=== PATIENT | male | born 1925 | race Caucasian/White ===

== ENCOUNTER 2016-06-06 13:25 | Inpatient (IN) ==
--- NOTE | 2016-06-06 13:55 | PROVIDER DOCUMENTATION ---
HPI-Abdominal Pain/GI Problem - General Chief Complaint: Foreign Body/Throat Stated Complaint: CONGESTION Time Seen by Provider: 06/06/16 13:49 Source: patient Allergies/Adverse Reactions: Patient Allergies Allergy/AdvReac Type Severity Reaction Status Date / Time No Known Allergies Allergy Verified 06/06/16 13:41 Home Medications: Levothyroxine [Synthroid] 75 microgm PO EVERY OTHER DAY 09/09/15 Losartan/Hydrochlorothiazide [Hyzaar 100-25 Tablet] 1 each PO DAILY 09/09/15 Pioglitazone HCl [Actos] 30 mg PO DAILY 09/09/15 Simvastatin 40 mg PO QHS 09/09/15 Tramadol HCl [Ultram] 100 mg PO TID PRN 09/09/15 Tamsulosin [Flomax] 0.4 mg PO QHS 12/04/15 - History of Present Illness-ABD Nature of Presenting Problems: pt is a 89 y/o M that presents with feeling congested and sensation of FB in throat/esophagus that began this am after eating grits. he was unable to swallow his V8 or water since. No difficulty breathing sense. pt did eat large blended meal last night. Abdominal Pain Onset Location: reports: epigastric, other (esophagus) Pain Radiation: reports: no radiation Quality of Pain: reports: pressure Severity in ED: reports: mild Onset/Duration: reports: abrupt, this morning Timing: reports: still present, constant Activities at Onset: denies: eating Modifying Factors: improves with: other (swallowing) Associated Symptoms: reports: nausea, vomiting. denies: chest pain, constipation, diaphoresis, diarrhea, fever/chills, genitourinary problems Similar Symptoms Previously?: No Recently seen or treated by another doctor?: No Review of Systems - Adult - REVIEW OF SYSTEMS - ADULT Constitutional: denies: chills, fever Eyes: reports: no symptoms reported Ears, Nose, Mouth & Throat: reports: other (sensation of fb in throat). denies : ear pain, sinus problem, throat pain, throat swelling Cardiovascular: denies: chest pain, palpitations, syncope Respiratory: denies: cough, shortness of breath, wheezing Gastrointestinal: reports: abdominal pain, difficulty swallowing, nausea, vomiting Genitourinary: reports: no symptoms reported Musculoskeletal: reports: no symptoms reported Integumentary: reports: no symptoms reported Neurological: reports: no symptoms reported Psychiatric: reports: no symptoms reported Endocrine: reports: no symptoms reported Hematologic/Lymphatic: reports: no symptoms reported Allergic/Immunologic: reports: no symptoms reported All Other Systems: Reviewed and Negative Past History - Adult - PAST MEDICAL HISTORY-ADULT Review of Records: reports: Old Records Reviewed, Nursing Assessment Review, Medications Reviewed Cardiovascular: reports: HTN, hyperlipidemia Gastrointestinal: reports: other (esophageal strictures) Endocrine/Immune: reports: Diabetes - PRIOR SURGERIES/PROCEDURES Surgical/Procedure History: reports: reviewed, not pertinent - PRIOR HOSPITALIZATIONS Prior Hospitalizations: reports: none - IMMUNIZATION STATUS Childhood Immunizations: See Nurse Assessment Flu Vaccine: See Nurse Assessment - FAMILY HISTORY Family History: reviewed, not pertinent - SOCIAL HISTORY Smoking: quit greater than 1 year, cigarettes Living Situation: family Physical Exam-General - PHYSICAL EXAM-ADULT Initial Vital Signs Reviewed: Yes - CONSTITUTIONAL General Appearance: alert, no apparent distress - EYES Eyes: PERRL/EOMI, pink conjunctivae - HEAD, EARS, NOSE, MOUTH & THROAT HENMT: normocephalic/atraumatic, moist mucous membranes, normal ENT inspection, pharynx normal - NECK Neck: non-tender, full range of motion, normal inspection - RESPIRATORY Respiratory: lungs clear, normal breath sounds, no respiratory distress, no accessory muscle use, other (tender to chest wall) - CARDIOVASCULAR Cardiovascular: regular rate, rhythm, no edema, no murmur - GASTROINTESTINAL (ABDOMEN) Abdominal Exam: normal bowel sounds, non tender, no organomegaly, no pulsatile mass, distended - MUSCULOSKELETAL Extremity: normal range of motion, normal inspection, normal capillary refill, pedal edema (3 plus pitting) - SKIN Integumentary: normal color, normal turgor, warm/dry - NEUROLOGIC Neurologic: grossly normal, no motor/sensory deficits - PSYCHIATRIC Psych/Mental Status: normal mood/affect, normal thought content, normal thought process, oriented x 3 Progress - PLAN OF CARE/RESULTS Progress/Plan/Lab Results: plan of care-cxr and meds 1540-GI has been paged 2301- at bedside, patient has haven't bowel movement in a week. has been on bland diet for awhile Vital Signs Temp Pulse Resp BP Pulse Ox 06/06/16 13:41 99.7 F H 98 H 18 122/69 99 No Known Allergies Allergy (Verified 06/06/16 13:41) Levothyroxine [Synthroid] 75 microgm PO EVERY OTHER DAY 09/09/15 Losartan/Hydrochlorothiazide [Hyzaar 100-25 Tablet] 1 each PO DAILY 09/09/15 Pantoprazole [Protonix] 40 mg PO DAILY #30 tablet 09/09/15 Pioglitazone HCl [Actos] 30 mg PO DAILY 09/09/15 Simvastatin 40 mg PO QHS 09/09/15 Tramadol HCl [Ultram] 100 mg PO TID PRN 09/09/15 Tamsulosin [Flomax] 0.4 mg PO QHS 12/04/15 Acetaminophen [Tylenol] 650 mg PO Q6H PRN PRN #0 tablet 12/06/15 Hydrochlorothiazide 25 mg PO DAILY #0 tablet 12/06/15 Levofloxacin [Levaquin] 500 mg PO Q48H #7 tablet 12/06/15 Losartan [Cozaar] 100 mg PO DAILY #0 tablet 12/06/15 Menthol/Zinc Oxide Ointment [Calmoseptine Ointment] 1 gm TOP PRN PRN #0 tube 05/22 Metronidazole [Flagyl] 500 mg PO TID #21 tablet 12/06/15 Amoxicillin 875 mg PO BID #20 tablet 04/16/16 Guaifenesin/Codeine [Robitussin-AC] 10 ml PO Q4H PRN PRN #4 oz 04/16/16 Dietary Diet NPO Start SunJun 06 1545 Laboratory 06/06/16 15:59 WBC 8.56 RBC 3.84 L Hgb 11.6 L Hct 35.7 L MCV 93.0 MCH 30.2 MCHC 32.5 L RDW Std Deviation 14.5 Plt Count 322 MPV 9.7 Immature Gran % (Auto) 0.1 Neut % (Auto) 64.2 Lymph % (Auto) 22.4 [place] % (Auto) 11.0 H Eos % (Auto) 1.8 Baso % (Auto) 0.5 Immature Gran # (Auto) 0.01 Neut # (Auto) 5.50 Lymph # (Auto) 1.92 [place] # (Auto) 0.94 H Eos # (Auto) 0.15 Baso # (Auto) 0.04 Orders Category Date Time Status Nursing [[facility] [place], [place]. NRSG Communication Order] DIRECTED Care 06/06/16 13:59 Active Saline Loc DIRECTED Care 06/06/16 15:45 Active NPO Diet 06/06/16 15:45 Active ABDOMEN FLAT/UPRIGHT [RAD] Stat Exams 06/06/16 15:49 Taken CHEST-2 VIEWS [RAD] Stat Exams 06/06/16 13:32 Completed AMYLASE [CHEM] Stat Lab 06/06/16 15:59 Received CBC WITH ELECTRONIC DIFF [HEME] Stat Lab 06/06/16 15:59 Completed COMPREHENSIVE METABOLIC PANEL [CHEM] Stat Lab 06/06/16 15:59 Received LIPASE [CHEM] Stat Lab 06/06/16 15:[address] W/POSS RFLX CULT [URINALYSIS] Stat Lab 06/06/16 15:45 Uncollected 0.9% Sodium Chloride Inj [Ns] 1,000 ml Med 06/06/16 16:00 Active IV 100 mls/hr Glucagon Med 06/06/16 13:58 Discontinued 1 mg IV NOW ONE Meperidine [Demerol] Med 06/06/16 13:58 Discontinued 12.5 mg IV NOW ONE Ondansetron [Zofran] Med 06/06/16 15:48 Discontinued 4 mg IV NOW ONE Pantoprazole [Protonix] Med 06/06/16 15:48 Discontinued 40 mg IV NOW ONE Promethazine [Phenergan] Med 06/06/16 13:58 Discontinued 12.5 mg IV NOW ONE Sodium Chloride 0.9% Med 06/06/16 13:58 Discontinued 10 ml INJ NOW ONE Sodium Chloride 0.9% Med 06/06/16 15:48 Discontinued 10 ml INJ NOW ONE EKG [EKG] Stat Ther 06/06/16 15:48 Ordered - REASSESSMENT Reassessment #1 Time Reassessed: 15:00 Status: other Reassessment Comment: unable to hold water down after medications were given 30 mins before - EKG 1 Time of EKG reading by physician:: 15:56 EKG Read and Signed by:: Owen Villalobos EKG Interpretation (*Must complete 3 of following elements*): Normal Rate: 93 Rhythm: NSR [place]: normal QRS: normal [place] Interval: normal ST Wave: normal - XRAY 1 XRAY Study: Chest Impression: Abnormal XRAY Interpretation: no pneumonia , constipation per radiologist - CONSULTS/PCP/HOSPITALIST Notification #1 *Consult/PCP/Hospitalist*: Dr. Henry Time Discussed: 15:43 Reason/Comments: admit to hospitalist at [facility] and he will consult Consult Disposition: other #2 Consult: (hospitalist on for [facility]) Time Discussed: 16:50 Reason/Comments: admit to [facility], [place], operated by [facility] for constipation, food bolus Consult Disposition: Admit Departure - Departure Time of Disposition Order: 16:54 DIAGNOSIS: FB esophagus, Constipation, Esophageal pain Disposition: ADMITTED INPATIENT 09 Certified Medical Emergency: Emergent Condition: Stable Attestation - Scribe Verification/Attestation Scribe:: Gage Mcmillan Acting as Scribe for:: Owen Villalobos Scribe documention review:: This chart was documented by a scribe and accurately reflects the service the provider performed and the decisions made by the provider. Physician Attestation - Physician Attestation I, the provider, attest to the following statement:: Owen Villalobos Physician documentation Attestation:: This documentation recorded by the scribe accurately reflects the service I personally performed and the decisions made by me.
[2016-06-06] MEDS ORDERED: PHENERGAN IV ONE (13:58)
[2016-06-06] MEDS ORDERED: DEMEROL IV ONE (13:58)
[2016-06-06] MEDS ORDERED: SODIUM CHLORIDE 0.9% INJ ONE ×2 (13:58→15:48)
[2016-06-06] MEDS ORDERED: GLUCAGON IV ONE (13:58)
--- NOTE | 2016-06-06 14:35 | Diag Imaging Result Document ---
PROCEDURE NAME: CHEST-2 VIEWS - 06/06/2016 FRONTAL AND LATERAL CHEST, TWO VIEWS: COMPARISON: 04/16/2016. FINDINGS: Poor inspiratory effort. The heart is not enlarged. The vessels are not distended. No pleural effusions. No consolidation. There is stool throughout the colon in the upper abdomen. IMPRESSION: 1. No pneumonia. 2. Constipation.
[2016-06-06] MEDS ORDERED: PROTONIX IV ONE (15:48)
[2016-06-06] MEDS ORDERED: ZOFRAN IV ONE (15:48)
[2016-06-06 16:07] LABS: MANUAL DIFF NEEDED? NO
[2016-06-06 16:09] LABS: BASO% 0.5 % (0.0-0.8); EOS# 0.15 X1000 (0.0-0.7); EOS% 1.8 % (0.0-10.0); HEMATOCRIT 35.7 % (42.0-52.0); HEMOGLOBIN 11.6 g/dL (14.0-18.0); IMM GRAN# 0.01 X1000 (0.0-0.04); IMM GRAN% 0.1 % (0.0-0.5); LYMPH# 1.92 X1000 (1.2-3.4); LYMPH% 22.4 % (20.5-51.1); MCH 30.2 PG (27-31); MCHC 32.5 g/dL (33-37); MONO# 0.94 X1000 (0.11-0.59); MPV 9.7 FL (7.4-10.4); NEUT% 64.2 % (42.2-75.2); PLT 322 X1000 (130-400); RBC 3.84 XMIL (4.7-6.1)
[2016-06-06] MEDS: NS 1,000 ML IV SCH (16:46)
[2016-06-06] MEDS ORDERED: ZOFRAN IV PRN (16:54)
--- NOTE | 2016-06-06 17:09 | Diag Imaging Result Document ---
PROCEDURE NAME: ABDOMEN FLAT/UPRIGHT - 06/06/2016 TWO VIEW ABDOMEN: INDICATION: Vomiting. FINDINGS: There is moderate retained fecal material throughout the colon, consistent with constipation. There is no evidence for obstruction or free air. There are advanced degenerative changes, lumbar spine. Calcifications overlying the left renal shadow are unchanged. IMPRESSION: Moderate constipation.
[2016-06-06 17:23] LABS: BUN 27 mg/dL (8-22); TCO2 25 mmol/L (25-35)
[2016-06-06 17:25] LABS: CALCIUM 8.8 mg/dL (8.8-10.2); TOTAL PROTEIN 6.6 g/dL (6.3-8.3)
[2016-06-06 17:26] LABS: AMYLASE 73 U/L (20-200); GOT 18 U/L (10-34); GPT 9 U/L (10-44); LIPASE 35 U/L (13-60)
[2016-06-06] MEDS ORDERED: DILAUDID ONE (17:30)
[2016-06-06] MEDS ORDERED: DILAUDID IV ONE (17:37)
--- NOTE | 2016-06-06 18:45 | EKG Report ---
Test Performed on : 06/06/2016 3:56:48 PM Test Reason : CP Blood Pressure : / mmHG Vent. Rate : 093 BPM Atrial Rate : 093 BPM P-R Int : 154 ms QRS Dur : 088 ms QT Int : 354 ms P-R-T Axes : 005 003 017 degrees QTc Int : 440 ms Normal sinus rhythm. Normal ECG When compared with ECG of 16-APR-2016 10:39, No significant change was found Unconfirmed Result
[2016-06-06 19:14] LABS: ALBUMIN 3.5 g/dL (3.5-5.0); ALKALINE PHOSPHATASE 73 U/L (32-122); CHLORIDE 97 mmol/L (98-107); POTASSIUM 4.4 mmol/L (3.5-5.1); SODIUM 132 mmol/L (136-145)
[2016-06-06 19:33] LABS: AGAP 10
[2016-06-06 19:34] LABS: COSMO 273
[2016-06-06] MEDS ORDERED: DEMEROL ONE (20:10)
[2016-06-06] MEDS: DEMEROL IV PRN (20:13)
[2016-06-06] MEDS ORDERED: DUONEB (A & A) ONE (21:29)
[2016-06-06] MEDS: DUONEB (A & A) INH SCH (21:40)
[2016-06-07] MEDS: DEMEROL IV PRN (00:14)
[2016-06-07] MEDS: NS 1,000 ML IV SCH ×3 (00:15→12:33)
[2016-06-07 06:14] LABS: MANUAL DIFF NEEDED? NO
[2016-06-07] MEDS ORDERED: NS 1,000 ML IV SCH ×2 (06:17→06:45)
[2016-06-07] MEDS: DUONEB (A & A) INH SCH ×7 (06:23→23:33)
[2016-06-07 06:26] LABS: INR 1.05; PROTIME 11.1 Seconds (9.2-11.7); PTT 28.9 Seconds (22.0-36.0)
[2016-06-07 06:32] LABS: HEMOGLOBIN A1C 5.8 % (4.8-6.0)
[2016-06-07 06:36] LABS: BASO% 0.2 % (0.0-0.8); EOS# 0.11 X1000 (0.0-0.7); EOS% 1.1 % (0.0-10.0); HEMATOCRIT 35.8 % (42.0-52.0); HEMOGLOBIN 11.6 g/dL (14.0-18.0); LYMPH# 1.66 X1000 (1.2-3.4); LYMPH% 16.8 % (20.5-51.1); MCH 30.3 PG (27-31); MCHC 32.4 g/dL (33-37); MCV 93.5 FL (81-99); MONO# 0.93 X1000 (0.11-0.59); MONO% 9.4 % (1.7-9.3); NEUT% 72.5 % (42.2-75.2); PLT 331 X1000 (130-400); RBC 3.83 XMIL (4.7-6.1)
[2016-06-07 06:51] LABS: CALCIUM 8.7 mg/dL (8.8-10.2); POTASSIUM 4.5 mmol/L (3.5-5.1)
--- NOTE | 2016-06-07 08:49 | HISTORY AND PHYSICAL ---
CHIEF COMPLAINT: Difficulty swallowing, possible foreign body in throat/esophagus. HISTORY OF PRESENT ILLNESS: Mr. Rqoue is an 89-year-old male who presented to the ER at [facility] yesterday afternoon at approximately 1:45 p.m. on June 06. The patient reports that since eating some grits earlier that morning that he has been unable to swallow anything since. The patient did report that he tried drinking a V8 and water, though he was unable to hold this down and did throw this back up, as well. Outside of his grits this morning, the patient did report eating a large meal the night before. The patient did report some discomfort and a congested feeling in his chest at [facility], though he states this has since subsided. He denies any difficulty breathing or shortness of breath. He denies any headache, dizziness, chest pain, abdominal pain, diarrhea, dysuria, or urinary frequency. He denies any pain, numbness or tingling in his extremities. The patient does report that he has had some nausea and vomiting secondary to his difficulty swallowing and being unable to hold down any fluids that he drinks. He denies any bloody or coffee-ground emesis. He denies any bloody or black tarry stools. The patient does deny a previous history of having any difficulty swallowing. He denies any previous history of esophageal strictures. In the ER at [facility], the patient was given glucagon as well as Demerol, though attempts were unsuccessful. Dr. Gonzalez was consulted, and he is aware of the patient and plans to perform and EGD today to further evaluate the patient's dysphagia. The patient was transferred to [facility] for admission. REVIEW OF SYSTEMS: A 14-point review of systems was conducted with the patient and all were negative except for pertinent positives mentioned in the above HPI. PAST MEDICAL HISTORY: 1. Hypertension. 2. Hyperlipidemia. 3. Diabetes mellitus type 2. 4. COPD. 5. Thyroid disease. 6. History of colitis. 7. History of acute renal failure. PAST SURGICAL HISTORY: Right knee surgery. SOCIAL HISTORY: The patient currently lives at home. He does have a previous history of smoking several years ago. The patient reports that he has since quit, though when he did smoke only smoked 1 pack per day for approximately 8 years. He denies any previous alcohol or illicit drug use. FAMILY HISTORY: Positive for lung cancer. ALLERGIES: The patient has no known drug allergies. HOME MEDICATIONS: At this time, we are awaiting the patient's home medication list to be confirmed and updated as well as possibly verified with his pharmacy. The patient's home medication list was previously confirmed at [facility], though upon speaking with the patient there were possibly 3 antibiotic medications listed on his list that he states he no longer takes. We will await for this to be confirmed and we will reconcile his meds once this has been updated. DIAGNOSTIC DATA/LABORATORY RESULTS: White blood cell count 8.5, red blood cell count 3.8, hemoglobin 11.6, hematocrit 35.7, platelet count 322. PT 11.1, INR 1.05, PTT 28.9. Sodium 132, potassium 4.4, chloride 97, bicarb 25, BUN 27, creatinine 1.4, glucose 151, calcium 8.8. Liver function tests were within normal limits. Amylase 73, lipase 35. ProBNP 509. TSH 2.79. Hemoglobin A1c 5.8. EKG: EKG performed at [facility] showed normal sinus rhythm at a rate of 93. IMAGING: Chest x-ray performed at [facility] showed no pneumonia with some constipation present. Abdomen x-ray showed moderate constipation, as well. PHYSICAL EXAMINATION: VITAL SIGNS: Temperature 97.4, heart rate 97, respirations 14, blood pressure 134/62, oxygen saturation is 95% on room air. GENERAL: Mr. Roque is a pleasant, elderly 89-year-old male who is resting in the inpatient bed who is in no acute distress. He was awake and alert upon examination and was able to answers all questions appropriately. HEENT: Head is atraumatic, normocephalic. Pupils are equal, round and reactive to light, were 3 mm bilaterally and brisk. Subconjunctivae were pink. Oral mucosa was moist. Oropharynx was clear. NECK: Supple, trachea midline, no JVD noted upon examination. No carotid bruits noted upon auscultation. CARDIOVASCULAR: The patient has normal S1, S2. No murmurs, gallops, or rubs appreciated with a regular rate and rhythm. PULMONARY: The patient has symmetrical chest expansion bilaterally. Lung sounds were clear in upper lung chapin though there were crackles noted in bilateral lung chapin. ABDOMEN: Soft nondistended, nontender. Bowel sounds were present in all 4 quadrants. EXTREMITIES: No cyanosis or clubbing noted. The patient does have 2+ pitting edema noted in bilateral lower extremities from mid calf down. Pedal pulses are 3+ bilaterally. Pulse, motor, and sensory are intact in all extremities. INTEGUMENTARY: The patient's skin is pink, warm, dry, and intact. No lesions or sores noted. NEUROLOGICAL: The patient is alert and oriented to person, place, time, and situation. Cranial nerves 2-12 are grossly intact. ASSESSMENT AND PLAN: 1. Dysphagia with possible esophageal foreign body. For this, the patient will be kept n.p.o. Dr. Gonzalez has been consulted, and he is aware of the patient and plans to take him for an EGD this morning. We will await his evaluation and further recommendations for this. At this time, the patient is in no distress. He is not having any respiratory difficulty. We will continue to monitor his condition closely. 2. Mild fluid volume depletion. For this, we will give the patient normal saline at 60 mL/h. This was reduced from 100 mL/h. The patient denies having a history of congestive heart failure though did have some crackles in bilateral lung bases, though he does not have any obvious JVD. He also does have lower extremity edema. We will continue to monitor his fluid status closely. 3. Hypertension. At this time, the patient is n.p.o. His blood pressure is within normal limits, so we are holding all oral medications as well as we are awaiting for the patient's home medication list to be updated. Once this is, we will continue his really prescribed antihypertensive medications. 4. Hyperlipidemia. We will continue his regular home medication for this once his med list is updated. 5. Hypothyroidism. The patient, according to his previous medication list, takes Synthroid 75 mcg p.o. every other day. We will continue this. The patient's TSH was 2.79. 6. Diabetes mellitus type 2. The patient's BUN and creatinine were elevated from possible mild fluid volume depletion. We have ordered normal saline at 75 an heart rate for gentle fluid resuscitation to help with this, though until his kidney function improves, we will place him on a lispro insulin sliding scale low-dose regimen and patterned fingerstick blood sugars. 7. Constipation. Once the patient is able to take oral medications, we will likely order for him to have some milk of magnesia to improve this, as well. The patient will be placed on the medical floor with telemetry. He will have vital signs q.4 h. DVT prophylaxis will be provided with SCDs at this time, given that the patient will be going for a procedure this morning. Will do strict intake and output. He will be n.p.o. until after his EGD is completed, and we will await his med list to be updated. Further orders and recommendations pending hospital course, diagnostic studies, and physician evaluation. Dictated by BENITO Srinivasan for Cornell Fisher MD
[2016-06-07] MEDS: HUMALOG SUBQ SCH ×3 (12:34→21:32)
[2016-06-07 12:43] LABS: URINE CULTURE NEEDED? NO; URINE MICRO REVIEW NEEDED? NO; URINE SOURCE CLEAN CATCH
[2016-06-07 12:50] LABS: BILIRUBIN URINE NEGATIVE (NEGATIVE); BLOOD URINE NEGATIVE (NEGATIVE); COLOR YELLOW; GLUCOSE URINE NEGATIVE (NEGATIVE); LEUKOCYTES URINE NEGATIVE (NEGATIVE); NITRITE URINE NEGATIVE (NEGATIVE); PH URINE 6.5; PROTEIN URINE NEGATIVE (NEGATIVE); SP GRAVITY URINE 1.014; TURBIDITY URINE CLEAR (CLEAR); UROBILINOGEN URINE NORMAL (NORMAL)
[2016-06-07 12:51] LABS: UR EPITHELIAL CELLS <10 /HPF (<10); URINE BACTERIA NEGATIVE /HPF; URINE RBC <10 /HPF (<10); URINE WBC <10 /HPF (<10)
[2016-06-07] MEDS ORDERED: MYLICON DROPS (DOSE) MISC ONE (13:03)
[2016-06-07] MEDS ORDERED: DIPRIVAN 1% ONE (13:20)
[2016-06-07 14:35] LABS: URINE CULTURE NEEDED? NO; URINE MICRO REVIEW NEEDED? NO; URINE SOURCE CATH
[2016-06-07 14:40] LABS: BILIRUBIN URINE NEGATIVE (NEGATIVE); BLOOD URINE NEGATIVE (NEGATIVE); COLOR STRAW; GLUCOSE URINE NEGATIVE (NEGATIVE); LEUKOCYTES URINE NEGATIVE (NEGATIVE); NITRITE URINE NEGATIVE (NEGATIVE); PH URINE 6.5; PROTEIN URINE NEGATIVE (NEGATIVE); TURBIDITY URINE CLEAR (CLEAR); UR EPITHELIAL CELLS <10 /HPF (<10); URINE BACTERIA NEGATIVE /HPF; URINE RBC <10 /HPF (<10); URINE WBC <10 /HPF (<10); UROBILINOGEN URINE NORMAL (NORMAL)
[2016-06-07] MEDS ORDERED: LR 1,000 ML ONE (14:41)
[2016-06-07] MEDS ORDERED: XYLOCAINE-MPF 2% ONE (14:41)
[2016-06-07] MEDS ORDERED: EXTENSION SET 32 IN 4522 ONE (14:41)
[2016-06-07] MEDS ORDERED: ANESTHESIA PB SET 88 IN 5742 ONE (14:41)
[2016-06-07] MEDS ORDERED: GOLYTELY PO ONE (15:00)
--- NOTE | 2016-06-07 16:46 | PROGRESS NOTE ---
DATE: 06/07/2016 SUBJECTIVE: Patient is feeling fine. No problems with swallowing. He complains of mild pain when he urinates. OBJECTIVE: Vital Signs: Temperature 97.6 degrees, heart rate 102, respiratory 14, blood pressure 128/84. O2 saturation 94% on room air. General Examination: This is an 89-year-old male, lying in bed, in no acute distress. HEENT: Head is normocephalic, atraumatic. Anicteric sclerae and pale conjunctivae. Mucous membranes moist. Neck: Supple. No JVD noted. No carotid bruits. No lymphadenopathy. No thyromegaly. Cardiovascular: S1, S2 heard. No murmurs, gallops, or rubs. Regular rate and rhythm. Respiratory: Clear bilaterally to auscultation. No work of breathing or using accessory muscles. Abdomen: Soft, nontender to palpation. Bowel sounds present. No organomegaly. Extremities: No clubbing or cyanosis. 2+ pitting edema in both lower extremities. Peripheral pulses present in both legs. Neurological: Patient alert oriented x3. Able to move 4 extremities. Hard of hearing. LABORATORY DATA: White cell count 9.86, hemoglobin 11.6, hematocrit 35.8, platelets 331,000. BMP is unremarkable. ASSESSMENT AND PLAN: 1. Dysphagia with possible esophageal foreign body. Patient underwent endoscopy today as per Dr. Florentino and apparently everything was fine. They recommend to keep this patient in the hospital overnight. Will repeat labs and he will go home with Protonix and Carafate. 2. Acute kidney injury. Creatinine is almost back to normal. We will continue with gentle fluid hydration. 3. Hypertension. Blood pressure is under control. So all antihypertensive medication has been held. We will check how he does tomorrow. 4. Hyperlipidemia. He is on home medications. 5. Hypothyroidism. He is on levothyroxine. 6. Diabetes mellitus type 2. We will continue with sliding scale insulin. 7. Constipation. Will try GoLYTELY and see how he does.
[2016-06-07] MEDS: SODIUM CHLORIDE 0.9% INJ SCH (17:07)
[2016-06-07] MEDS: PROTONIX IV SCH (17:07)
[2016-06-07] MEDS: MIRALAX PO SCH (21:02)
[2016-06-07] MEDS: MORPHINE IV PRN (21:02)
[2016-06-07] MEDS: DULCOLAX PR SCH (21:05)
--- NOTE | 2016-06-07 21:51 | OPERATIVE NOTE ---
PROCEDURE DATE : 06/07/2016 PRIMARY PHYSICIAN: Dr. Filipe Easton TITLE OF PROCEDURE: Esophagogastroduodenoscopy with esophageal dilatation. PREOPERATIVE DIAGNOSES: 1. Food impaction after eating grits. 2. Intermittent dysphagia going on for months. 3. Reflux disease. 4. Diabetes. 5. Hypertension. 6. Hyperlipidemia. 7. Chronic constipation. No bowel movement for the last 6 days. 8. Last colonoscopy within 4-5 years per the patient's family. POSTOPERATIVE DIAGNOSES: 1. Tortuous esophagus. 2. Esophageal stricture noted at the gastroesophageal junction. 3. Z-line was at 37 cm. 4. Evidence of a sliding hiatal hernia more than 6 cm. 5. Evidence of some retained food stuff in the stomach and antrum. This was suctioned out. 6. Normal fundus, cardia, and incisura. 7. Normal duodenal bulb and second portion of duodenum. 8. Esophageal dilation was performed with 48 and 54 Slovenian balloon dilation. ESTIMATED BLOOD LOSS: None. COMPLICATIONS: None. ANESTHESIA: Monitored anesthesia. SPECIMEN: None. DESCRIPTION OF PROCEDURE: After informed consent from the patient and the family, explaining the risks, benefits, indications, and alternatives, the patient was prepared for EGD. The risks of the procedure including infection, bleeding, pain, trauma to the surrounding structures, and perforation were explained to the patient and family, among others, and they acknowledged understanding and agreed to proceed. The patient was brought to the OR and turned in the left lateral position. A bite block was placed in his mouth. After adequate monitored anesthesia, the upper scope was introduced to the oral vestibule and advanced all the way to the second portion of the duodenum. The esophagus was normal and the proximal and third. Middle and distal esophagus shows tortuosity. There was evidence of a stricture at the GE junction. The Z- line was at 37 cm. There was evidence of a sliding hiatal hernia measuring more than 6 cm. There was no evidence of any [place] lesions in the hiatal sac. The scope was entered into the stomach which had evidence of some retained food material in the distal gastric body and antrum. This was suctioned out. Retroflexion revealed the hiatal hernia and otherwise normal fundus, cardia, incisura. The scope was advanced to the duodenum which showed a normal duodenal bulb and second portion of the duodenum. The scope was withdrawn into stomach and again the area of the GE junction was carefully examined and there was no evidence of any malignancy. The air was aspirated as the scope was withdrawn. The patient underwent Peterson dilation with a 48 and 54 Slovenian successfully. The patient tolerated the procedure and is being monitored in the OR in stable condition. I discussed the findings with the patient's family in the waiting area and all questions were answered. RECOMMENDATIONS: 1. The patient will need to be on aspiration precautions. 2. The patient will take small frequent meals about 4-6 times a day. 3. The patient will be put on a full liquid diet for the next 2 days and then advance to a soft diet for 2-3 days. 4. The patient will have to chew the food very well and drink plenty of fluid with meals as he has a large hiatal hernia. 5. The patient will follow gastroesophageal reflux lifestyle changes. Avoid excessive tea, coffee, soda, tomatoes, onions, and spicy foods. 6. I will keep him on Protonix once a day for 3 months and then wean down to Zantac 150 mg at that time. 7. To relieve constipation we will start the patient on Dulcolax suppositories 20 mg at bedtime and MiraLAX 17 to 34 grams in the morning. 8. Further recommendations to follow. [facility]
[2016-06-08] MEDS: DUONEB (A & A) INH SCH ×6 (03:45→23:11)
[2016-06-08 06:21] LABS: MANUAL DIFF NEEDED? NO
[2016-06-08 06:29] LABS: BASO% 0.2 % (0.0-0.8); EOS# 0.07 X1000 (0.0-0.7); EOS% 0.9 % (0.0-10.0); HEMOGLOBIN 9.9 g/dL (14.0-18.0); IMM GRAN# 0.02 X1000 (0.0-0.04); IMM GRAN% 0.2 % (0.0-0.5); LYMPH# 1.69 X1000 (1.2-3.4); LYMPH% 20.8 % (20.5-51.1); MCH 30.2 PG (27-31); MCHC 31.9 g/dL (33-37); MCV 94.5 FL (81-99); MONO# 1.07 X1000 (0.11-0.59); MONO% 13.2 % (1.7-9.3); MPV 10.2 FL (7.4-10.4); NEUT% 64.7 % (42.2-75.2); PLT 256 X1000 (130-400); RBC 3.28 XMIL (4.7-6.1)
[2016-06-08 06:40] LABS: CALCIUM 8.2 mg/dL (8.8-10.2)
[2016-06-08] MEDS: HUMALOG SUBQ SCH ×4 (06:46→22:10)
[2016-06-08] MEDS: MORPHINE IV PRN ×3 (08:51→22:59)
[2016-06-08] MEDS: MIRALAX PO SCH (08:59)
[2016-06-08] MEDS: ICAR-C PO SCH ×2 (09:04→22:06)
[2016-06-08] MEDS: CENTRUM SILVER PO SCH (09:04)
--- NOTE | 2016-06-08 09:49 | PROGRESS NOTE ---
DATE: 06/08/2016 SUBJECTIVE: Patient resting in bed. He complains of back and hip pain. He was getting IV morphine. He continues to have constipation. He is anemic. He has been on MiraLAX and Dulcolax. We started him on GoLYTELY but still he had very small bowel movement. His last colonoscopy was 4- 5 years ago. PHYSICAL EXAMINATION: Vitals: Temperature 97.9 degrees, pulse rate of 100, respiratory rate of 16, blood pressure 114/48, saturating 98% on room air. General Appearance: Moderately built, moderately nourished, lying in bed, in no acute distress. HEENT: Pale conjunctivae. No pallor. No icterus. Neck: Supple. Abdomen: Mild protuberance. Soft. Bowel sounds are present. No guarding. No rebound. Extremities: No cyanosis, clubbing. Neurologic: He is alert and awake. Answers questions. LABS: His hemoglobin and hematocrit are 9.9 and 31, white count of 8.1, platelet count of 256,000. Sodium 141, potassium 4, chloride 105, bicarb 24, anion gap 12, BUN of 17, creatinine 1.3, glucose of 117, calcium is 8.2. IMPRESSION AND PLAN: 1. Schatzki's ring at gastroesophageal junction, status post dilation. Will continue on a liquid diet today and advance as tolerated. 2. Large hiatal hernia. Will take small frequent meals. 3. Gastrointestinal prophylaxis with Protonix once daily. Patient will need to be on Protonix once daily for the next 3 months for reflux disease. 4. Constipation. We will continue him on GoLYTELY, MiraLAX, and Dulcolax. We will schedule him for a colonoscopy for workup of worsening constipation and anemia. The patient and the family want to pursue this intervention, although there is a slightly higher surgical risk because of multiple medical comorbid conditions. The risks, benefits, and alternatives were discussed with the patient and family, and all questions were answered. [facility]
--- NOTE | 2016-06-08 09:59 | Diag Imaging Result Document ---
PROCEDURE NAME: CHEST-2 VIEWS - 06/08/2016 CHEST 2 VIEWS: Compared with 06/06/2016. FINDINGS: Heart size is normal. Inspiration is mildly shallow with mild basilar atelectasis, similar to the previous exam. Compared to previous exam, no acute changes are identified. There is no consolidation, pleural effusion, or pneumothorax identified. The patient is noted to have a hiatal hernia. IMPRESSION: Stable exam compared to 06/06/2016.
--- NOTE | 2016-06-08 16:42 | PROGRESS NOTE ---
DATE: 06/08/2016 SUBJECTIVE: Patient is feeling fine. No nausea, vomiting. He is not complaining of any abdominal pain. OBJECTIVE: Vital Signs: Temperature 97.8 degrees, heart rate 89, respiratory rate 16, blood pressure 114/53, O2 saturation on 95% on room air. General Examination: This is an 89-year-old male, lying in bed, in no acute distress. HEENT: Head is normocephalic, atraumatic. Anicteric sclerae and pale conjunctivae. Mucous membranes moist. Neck: Supple. No jugular venous distention. No carotid bruits. No lymphadenopathy. No thyromegaly. Cardiovascular: S1, S2 heard. No murmurs, gallops, or rubs. Regular rate and rhythm. Respiratory: Clear bilaterally to auscultation. No work of breathing or using accessory muscles. Abdomen: Soft, nontender to palpation. Bowel sounds present. No organomegaly. Extremities: No clubbing, cyanosis, or edema. Peripheral pulses present in both legs. Neurological Examination: Patient is alert and oriented x3. Able to move 4 extremities. Cranial nerves 2-12 grossly normal. LABORATORY DATA: CBC reveals hemoglobin 9.9, with hematocrit 31. BMP unremarkable, except creatinine 1.3. ASSESSMENT AND PLAN: 1. Dysphagia. 2. Mild 3. Hypertension. 4. Benign prostatic hypertrophy. 5. Hyperlipidemia. 6. Hypothyroidism. 7. Diabetes mellitus. 8. Constipation. PLAN: The patient was transferred from [facility] because of dysphagia and he underwent upper endoscopy, as per Dr. Florentino. The report from that procedure is not available for clinical issues today. He decided to proceed with colonoscopy tomorrow. We will follow recommendations. Regarding benign prostatic hypertrophy, the patient was complaining of pain when he urinated, but the urinalysis was okay and we need to put a Mcmullen catheter. We are going to consult Urology while he is here. Will see what Dr. Ruiz from Urology has to say. For diabetes mellitus and hypertension, we will continue basically with the same home medications.
[2016-06-08] MEDS: ULTRAM PO PRN (17:59)
[2016-06-08] MEDS: PROTONIX IV SCH (18:01)
[2016-06-08] MEDS: SODIUM CHLORIDE 0.9% INJ SCH (18:01)
--- NOTE | 2016-06-08 20:18 | CONSULTATION ---
DATE OF CONSULTATION: 06/08/2016 HISTORY OF PRESENT ILLNESS: The patient was admitted with trouble swallowing, and sensation of a foreign body in his throat. I think he had an EGD with esophageal dilation. He was transferred I think from [facility] where he was admitted. He has swelling in his legs. Some suggestion of congestive heart failure not supported by his BNP was noted and now he has some low level renal failure which might cause that. At any rate during his stay here he had his gastroenterologic workup to include EGD, esophageal dilation as best I can tell, and colonoscopy. He has had trouble voiding while he has been here. He admits to that. He is quite elderly, 89 years of age, but he does admit to trouble urinating. At around 2 p.m. on 06/07/2016 he had a catheter placed and the documented urinary output by 4 o'clock p.m. approximately was 1500 mL. I really think he had around 4189-1636 mL postvoid residual. He had 2 voids prior to that catheter being placed of about 150 mL each, so not emptying sufficiently to that end, I was consulted. ALLERGIES: No known drug allergies. MEDICATIONS: As listed. He had issues with constipation. Tramadol may be contributing to that. No urologic medications were noted. PAST MEDICAL HISTORY: High blood pressure, hyperlipidemia, anemia, diabetes, COPD, thyroid disease, history of colitis, acute on chronic renal failure and BPH with urinary retention are established diagnoses effective today. The patient also has dependent edema. PAST SURGICAL HISTORY: Includes a right knee surgery. Of course, I think now he had an EGD, esophageal dilation and colonoscopy. SOCIAL HISTORY: He lives at home in [place]. His regular family doctor is Dr. Easton. Previous smoker. None currently. Nondrinker. No illicit drugs. FAMILY HISTORY: Significant for lung cancer. He does not complain which family member had lung cancer. LABS: His results do show some anemia. It seems to me I remember hemoglobin around 9, BNP is borderline, creatinine 1.35. REVIEW OF SYSTEMS: HEENT: Negative. Cardiac: See above. Pulmonary: Negative. Gastrointestinal: See above. Musculoskeletal: Other than generalized debility, none. Endocrine: None. Vascular: Peripheral edema. Genitourinary: BPH with obstruction. Neurologic: The patient is oriented. No associated history. Hematologic: Anemia. Psychiatric: Without issue. PHYSICAL EXAMINATION: Vital Signs: Stable. He is afebrile. Blood pressure on last vital signs taken was 136/66, pulse 80, respirations 22, heart rate 84, temperature 97.8 degrees. Probably that blood pressure is sufficient all things considered. Hope he tolerates Flomax especially if we can get him started on that while he is not active very much here. He may do okay. Head and Neck: Without lump or mass. Lungs: Clear to auscultation on my examination. Heart: My examination had a regular rate and rhythm. I did not notice much in the way of murmurs. He is in no respiratory distress. Abdomen: Soft, nondistended. He was on the toilet when I first saw him getting all of his elimination corrected. Genitourinary Examination: Without hernia, testicles descended bilaterally, normal penis without lesions, adequate meatus. Rectum: Digital rectal revealed about a 35 g slightly enlarged gland without irregularity, asymmetry or nodularity. No pain. Rectal vault was devoid of feces or mass. Sphincter tone normal. He looks to have some senile polyps there. Skin: Warm and dry. Patient does have dependent edema. Pitting edema to the level of the knee. He had that for a while and does not know why he has that at this time. Neurological: He was alert, oriented and pleasant. UROLOGIC IMPRESSION: Benign prostatic hypertrophy with bladder obstruction and urinary retention. PLAN: I think I would try him on some Flomax 1 a day. I would like to get that started while the patient is here in the hospital to make sure that he can tolerate it and does not have much in the way of dizziness. I can certainly follow him as an outpatient for his outlet obstruction and refills on his Flomax. I look forward to following up with him in the office. I think he is okay to have a trial of voiding and catheter removal whenever he is soon prepared for departure especially if we can the Flomax on board.
[2016-06-08] MEDS: DULCOLAX PR SCH (22:06)
[2016-06-08] MEDS: FLOMAX PO SCH (22:09)
[2016-06-09] MEDS: DUONEB (A & A) INH SCH ×6 (03:26→23:29)
[2016-06-09] MEDS: ULTRAM PO PRN ×2 (03:54→07:49)
[2016-06-09] MEDS: MORPHINE IV PRN ×2 (06:36→11:15)
[2016-06-09] MEDS: HUMALOG SUBQ SCH ×2 (11:21→23:07)
[2016-06-09] MEDS ORDERED: MYLICON DROPS (DOSE) MISC ONE (13:43)
[2016-06-09] MEDS: NORCO-5 PO SCH ×2 (14:11→16:00)
[2016-06-09] MEDS ORDERED: DIPRIVAN 1% ONE (14:12)
--- NOTE | 2016-06-09 14:16 | PROGRESS NOTE ---
DATE: 06/09/2016 SUBJECTIVE: Patient is feeling fine. Complaining of moderate pain on both knees. OBJECTIVE: Vital Signs: Temperature 98.5 degrees, heart rate 100, respiratory rate 15, blood pressure 135/76, O2 saturation 97% on room air. General Examination: This is an 89-year-old male, lying in bed, in no acute distress. HEENT: Head is normocephalic, atraumatic. Anicteric sclerae and pale conjunctivae. Mucous membranes moist. Neck: Supple. No JVD noted. No carotid bruits. No lymphadenopathy. No thyromegaly. Cardiovascular: S1, S2 heard. No murmurs, gallops, or rubs. Regular rate and rhythm. Respiratory: Clear bilaterally to auscultation. No work of breathing or using accessory muscles. Abdomen: Soft, nontender to palpation. Bowel sounds present. No organomegaly. Extremities: No clubbing, cyanosis, or edema. Peripheral pulses present in both legs. Signs of chronic venous stasis. Neurological: Patient alert and oriented x3. Cranial nerves 2-12 grossly normal. LABORATORY DATA: There are no labs from today. ASSESSMENT AND PLAN: 1. Dysphagia. 2. Hypertension. 3. Benign prostatic hypertrophy. 4. Hyperlipidemia. 5. Hypothyroidism. 6. Diabetes mellitus. 7. Constipation. 8. Physical deconditioning. PLAN: Patient has been evaluated by Dr. Florentino. He underwent endoscopy with no remarkable findings. They found hiatal hernia. Also they found esophageal stricture that was dilated. Today he is supposed to have colonoscopy. We will see what that exam shows. The patient is complaining of pain probably for generalized osteoarthritis. We are going to change tramadol for Palmer. Also for benign prostatic hypertrophy the daughter has requested a Urology consultation and they have been evaluated by Dr. Ruiz. He was restarted on Flomax and he will see him in the office. For physical deconditioning, daughter who lives with him thinks that this patient needs a rehab facility placement. We have put a consult for social director and hopefully we can send this patient next Sunday or Sunday.
[2016-06-09] MEDS ORDERED: XYLOCAINE-MPF 2% ONE (14:24)
[2016-06-09] MEDS ORDERED: LR 1,000 ML ONE (14:24)
[2016-06-09] MEDS: SODIUM CHLORIDE 0.9% INJ SCH (15:59)
[2016-06-09] MEDS: ICAR-C PO SCH ×2 (15:59→23:09)
[2016-06-09] MEDS: CENTRUM SILVER PO SCH (15:59)
[2016-06-09] MEDS: PROTONIX IV SCH (15:59)
[2016-06-09] MEDS: MIRALAX PO SCH (15:59)
[2016-06-09] MEDS: DULCOLAX PR SCH (23:08)
[2016-06-09] MEDS: FLOMAX PO SCH (23:09)
[2016-06-10] MEDS: DUONEB (A & A) INH SCH ×6 (03:32→23:10)
[2016-06-10] MEDS: HUMALOG SUBQ SCH ×4 (06:10→23:55)
[2016-06-10] MEDS: ICAR-C PO SCH ×2 (11:22→23:56)
[2016-06-10] MEDS: CENTRUM SILVER PO SCH (11:23)
[2016-06-10] MEDS: NORCO-5 PO SCH ×3 (11:23→23:57)
[2016-06-10] MEDS: MIRALAX PO SCH (11:23)
--- NOTE | 2016-06-10 14:20 | PROGRESS NOTE ---
DATE: 06/10/2016 SUBJECTIVE: Patient is doing fine. Reported mild aching yesterday. He is completely fine with his medications. Mild aching from both legs is getting better with medication he is taking here. OBJECTIVE: Vital signs: Temperature 98.4, heart rate 110, respiratory rate 18 , blood pressure 129/62, O2 saturation 97% on room air. General: This is an 89-year-old male lying in bed in no acute distress. HEENT: Head is normocephalic and atraumatic. Anicteric sclerae. Pale conjunctivae. Mucous membranes are moist. Neck: Supple. No JVD noted. No carotid bruit. No lymphadenopathy. No thyromegaly. Cardiovascular exam: S1, S2 heard. No murmurs, gallops, or rubs. Regular rate and rhythm. Respiratory: Clear bilaterally to auscultation. No work of breathing. No using accessory muscles. Abdomen: Soft, mildly tender to palpation. Bowel sounds present. No organomegaly. Extremities: 1+ pedal edema both lower extremities. No clubbing or cyanosis. Peripheral pulses present in both legs. There are signs of chronic venous stasis. Neurological: Patient is alert and oriented x3. Moves four extremities. LABORATORY DATA: There are no labs from today. ASSESSMENT AND PLAN: 1. Dysphagia. 2. Hypertension. 3. Benign prostatic hypertrophy. 4. Hyperlipidemia. 5. Hypothyroidism. 6. Diabetes mellitus. 7. Constipation. 8. Physical deconditioning. PLAN: Patient was admitted to hospital for nausea and vomiting, so Gastroenterology was consulted and they scoped him the next day here in the [facility]. Then they recommended to do a colonoscopy, which he underwent and apparently just some diverticulosis, but now he is feeling fine. Urology has been consulted and will see him in the office for BPH, and at this time, the plan is to keep this patient in hospital until he qualifies for going to rehabilitation facility. [facility]
[2016-06-10] MEDS: SODIUM CHLORIDE 0.9% INJ SCH (16:19)
[2016-06-10] MEDS: PROTONIX IV SCH (16:19)
[2016-06-10] MEDS: DULCOLAX PR SCH (23:56)
[2016-06-10] MEDS: FLOMAX PO SCH (23:56)
[2016-06-11] MEDS: DUONEB (A & A) INH SCH ×6 (03:16→23:10)
[2016-06-11 06:30] LABS: MANUAL DIFF NEEDED? NO
[2016-06-11 06:35] LABS: BASO% 0.4 % (0.0-0.8); EOS# 0.26 X1000 (0.0-0.7); EOS% 4.9 % (0.0-10.0); HEMATOCRIT 33.1 % (42.0-52.0); HEMOGLOBIN 10.6 g/dL (14.0-18.0); LYMPH# 1.75 X1000 (1.2-3.4); LYMPH% 32.8 % (20.5-51.1); MCV 93.8 FL (81-99); MONO# 0.78 X1000 (0.11-0.59); MONO% 14.6 % (1.7-9.3); MPV 10.3 FL (7.4-10.4); NEUT% 47.3 % (42.2-75.2); PLT 215 X1000 (130-400); RBC 3.53 XMIL (4.7-6.1)
[2016-06-11 06:44] LABS: CALCIUM 8.5 mg/dL (8.8-10.2); POTASSIUM 4.2 mmol/L (3.5-5.1)
[2016-06-11] MEDS: HUMALOG SUBQ SCH ×4 (07:24→21:47)
[2016-06-11] MEDS: ICAR-C PO SCH ×2 (09:44→21:47)
[2016-06-11] MEDS: MIRALAX PO SCH (09:44)
[2016-06-11] MEDS: NORCO-5 PO SCH ×3 (09:44→17:24)
[2016-06-11] MEDS: CENTRUM SILVER PO SCH (09:44)
[2016-06-11] MEDS: MORPHINE IV PRN ×2 (11:31→21:46)
--- NOTE | 2016-06-11 16:26 | PROGRESS NOTE ---
DATE: 06/11/2016 SUBJECTIVE: Patient is feeling fine. Denies any pain. OBJECTIVE: Vital Signs: Temperature 97.6 degrees, heart rate 107, respiratory rate 18, blood pressure 126/65, O2 saturation 96% on room air. General Examination: This is an 89-year-old male, lying in bed, in no acute distress. HEENT: Head is normocephalic, atraumatic. Anicteric sclerae. Pale conjunctivae. Mucous membranes moist. Neck: Supple. No JVD noted. No carotid bruits. No lymphadenopathy. No thyromegaly. Cardiovascular: S1, S2 heard. No murmurs, gallops, or rubs. Regular rate and rhythm. Respiratory: Clear bilaterally to auscultation. No work of breathing or using accessory muscles. Abdomen: Soft. Mildly tender to palpation. Bowel sounds present. No organomegaly. Extremities: No clubbing or cyanosis. There is 1+ pitting edema in both lower extremities. Signs of chronic venous insufficiency. Peripheral pulses present but faint. Neurological: The patient is hard of hearing but alert and oriented. Moves 4 extremities. LABORATORY DATA: White cell count 5.34, hemoglobin 10.6, hematocrit 33.1, platelets 216,000. BMP just remarkable for creatinine 1.3. ASSESSMENT: 1. Hypertension. 2. Benign prostatic hypertrophy. 3. Hyperlipidemia. 4. Hypothyroidism. 5. Diabetes mellitus type 2. 6. Constipation. 7. Physical deconditioning. PLAN: Patient was admitted to the hospital for sensation dysphagia. Finally he got an endoscopy with esophageal dilatation. Also he got an endoscopy with some diverticulitis noted. Also because of urinary retention, he was seen by Dr. Ruiz from urology and he is planning to see him in the office after he is discharged. For physical deconditioning, definitely this patient will need rehab facility. We have put a consult for psych social worker. Will see when they have a bed for this patient.
[2016-06-11] MEDS: PROTONIX IV SCH (17:24)
[2016-06-11] MEDS: SODIUM CHLORIDE 0.9% INJ SCH (17:24)
[2016-06-11] MEDS: DULCOLAX PR SCH (21:47)
[2016-06-11] MEDS: FLOMAX PO SCH (21:47)
[2016-06-12] MEDS: MORPHINE IV PRN ×2 (03:36→10:38)
[2016-06-12] MEDS: DUONEB (A & A) INH SCH ×3 (03:55→11:23)
[2016-06-12 06:33] LABS: MANUAL DIFF NEEDED? NO
[2016-06-12 06:34] LABS: BASO% 0.5 % (0.0-0.8); EOS# 0.33 X1000 (0.0-0.7); EOS% 5.7 % (0.0-10.0); HEMOGLOBIN 10.6 g/dL (14.0-18.0); IMM GRAN# 0.02 X1000 (0.0-0.04); IMM GRAN% 0.3 % (0.0-0.5); LYMPH# 1.82 X1000 (1.2-3.4); LYMPH% 31.7 % (20.5-51.1); MCH 30.4 PG (27-31); MCHC 32.1 g/dL (33-37); MCV 94.6 FL (81-99); MONO# 0.68 X1000 (0.11-0.59); MONO% 11.8 % (1.7-9.3); MPV 9.8 FL (7.4-10.4); PLT 229 X1000 (130-400); RBC 3.49 XMIL (4.7-6.1)
[2016-06-12] MEDS: HUMALOG SUBQ SCH ×2 (06:51→11:31)
[2016-06-12 07:49] LABS: CALCIUM 8.4 mg/dL (8.8-10.2); POTASSIUM 4.2 mmol/L (3.5-5.1)
[2016-06-12] MEDS: MIRALAX PO SCH (08:51)
[2016-06-12] MEDS: CENTRUM SILVER PO SCH (08:51)
[2016-06-12] MEDS: NORCO-5 PO SCH ×2 (08:51→14:10)
[2016-06-12] MEDS: ICAR-C PO SCH (08:51)
--- NOTE | 2016-06-12 13:19 | PROGRESS NOTE ---
DATE: 06/12/2016 SUBJECTIVE: The patient is resting in bed. He does complain of liquid stools. He is on laxatives. His colonoscopy on Sunday showed evidence of stool throughout the colon, diverticulosis. OBJECTIVE: Vital signs: Temperature 97.7 degrees, pulse rate of 94, respiratory rate of 16, blood pressure 135/65, saturating 92% on room air. General Appearance: Moderately built, moderately nourished, lying in bed, in no acute. HEENT: Mild pallor. No icterus. Neck: Supple. Abdomen: Mildly protuberant, soft, nontender, nondistended. Bowel sounds noted. Extremities: No cyanosis, clubbing. Neurologic: Alert, awake, and oriented. LABS: Hemoglobin and hematocrit is 10.6 and 33, white count 5.7, platelet count of 229,000. Sodium 140, potassium 4.2, chloride 103, bicarb 25, anion gap of 13, BUN of 12, creatinine 1.2, glucose of 98, calcium 8.4. ASSESSMENT AND PLAN: 1. Diverticulosis of the colon and constipation. The patient is on a high-fiber diet. Avoid excessive corn, nuts, and seeds, and prevent constipation by taking MiraLAX every day. 2. Anemia. Continue to watch. May need to supplement with multivitamin once daily. 3. Large hiatal hernia and esophageal stricture at the gastroesophageal junction. She will be continued on gastroesophageal reflux lifestyle changes. Continue on Prilosec once daily and take small frequent meals and chew the food very well. The above plan of care was discussed with the patient and all questions answered.
[2016-06-12 15:11] VITALS: BP 131/90
--- NOTE | 2016-06-13 10:16 | DISCHARGE SUMMARY ---
ADMISSION DATE: 06/06/2016 DISCHARGE DATE: 06/12/2016 CONSULTATIONS: 1. Dr. Garry Florentino with Gastroenterology. 2. Dr. Nain Ruiz with Urology. PROCEDURES: An esophagogastroduodenoscopy with esophageal dilatation performed by Dr. Garry Florentino. DISCHARGE DIAGNOSES: 1. Dysphagia with possible esophageal foreign body. The patient underwent an esophagogastroduodenoscopy by Dr. Florentino and found to have an esophageal stricture noted at the gastroesophageal junction. The patient tolerating a GI soft diet. The patient went home with home health. 2. Mild fluid volume depletion, resolved. 3. Hypertension, stable. 4. Hyperlipidemia. Continue home medicines. 5. Hypothyroidism. Continue with Synthroid. 6. Diabetes mellitus. Continue with home medications. 7. Constipation. The patient will take MiraLAX. 8. Benign prostatic hypertrophy. Continue with Flomax. 9. Physical deconditioning. The patient refused rehab. He will be going home with his daughter and his regular home health comfort care. The patient will be followed by Dr. Ruiz and will see him outpatient for his outlet obstruction and refills on Flomax. 10. Acute kidney injury, resolved, secondary to benign prostatic hypertrophy. Patient is on Flomax. HOSPITAL COURSE: Mr. Roque is an 89-year-old male who presented to the ED at [facility]. The patient had eaten some grits and was unable to swallow anything since. He did try to drink water and [facility]. He was unable to hold this down and did throw it back up as well. While in the ED at [facility], the patient was given glucagon as well as Demerol though attempts were unsuccessful. Dr. Gonzalez was consulted. The patient was transferred to [facility] for an EGD with dilatation. He was also found to be mildly fluid volume depleted. He was started on IV fluids. Dr. Branham did do an EGD with esophageal dilatation. They did find a tortuous esophagitis and an esophageal stricture noted at the gastroesophageal junction, also, evidence of a sliding hernia. The patient has been instructed to take frequent small meals about 4-6 times a day. He was placed on a full liquid diet and advanced to a GI soft diet. The patient has been instructed to chew his food very well and drink plenty of fluids with his meals secondary to his large hiatal hernia. The patient will need to undergo GERD reflux style changes, avoiding excess tea, coffee, sodas, onions, spicy foods. He will need to remain on his PPI. For constipation, he will need to continue to take MiraLAX, and he will also need to avoid excess corns, nuts, seeds for constipation and diverticulosis. Dr. Ruiz also did see the patient secondary to BPH with bladder obstruction and urinary retention. He was placed on Flomax. I believe he did receive a Mcmullen catheter that has since been removed. Dr. uRiz will see him on an outpatient basis for his outlet obstruction and refills on his Flomax. The patient has tolerated the Flomax well due to physical deconditioning. environmental services manager were brought on to get the patient to rehab; however, on the day of his discharge, the patient refuses rehab. He will go home with his daughter and resume his home health with comfort care. VITAL SIGNS AT TIME OF DISCHARGE: Temperature is 97.7 degrees, heart rate 97, respirations are 20, blood pressure 135/65. O2 is 96% on room air. DISCHARGE DIET: GI soft. DISCHARGE MEDICATIONS: Per Dr. Mae. Please see MAR. FOLLOWUP: The patient is being discharged home and resume his home health services with comfort care. He will follow up with Dr. Ruiz as instructed. He will follow up with Dr. Florentino as instructed and follow up with his primary care physician in 7-10 days. Again, the patient will need to follow a high-fiber diet with small frequent meals 4-6 times a day. He will need to drink plenty of fluids with these meals. He will need to avoid excessive corn, nuts, seed, spicy foods, excessive tea, coffee, sodas, tomatoes, or onions. He will need to use MiraLAX to prevent constipation. The patient can return to the ED for any worsening of symptoms. Discharge Time: 35 minutes. Dictated by BENITO Rader for Rich Neal MD
== END 2016-06-12 16:41 | disposition home health service (06) | DRG 392 ==
LOC: P.ED 13:25 → INTOOBSV 17:07 → P.EDIPHOLD 17:07 → OBSVTOIN 17:07 → 3N 22:46
PROVIDERS: ATTEND Internal Medicine
PROC: 0D758ZZ Dilation of Esophagus, Via Natural or Artificial Opening Endoscopic (ICD-10-PCS; principal; 2016-06-07 12:32)
PROC: 0DJD8ZZ Inspection of Lower Intestinal Tract, Via Natural or Artificial Opening Endoscopic (ICD-10-PCS; 2016-06-09)
DX: K22.2 Esophageal obstruction (principal); N17.9 Acute kidney failure, unspecified; J44.9 Chronic obstructive pulmonary disease, unspecified; F03.90 Unspecified dementia, unspecified severity, without behavioral disturbance, psychotic disturbance, mood disturbance, and anxiety; N13.8 Other obstructive and reflux uropathy; E11.9 Type 2 diabetes mellitus without complications; D64.9 Anemia, unspecified; I10 Essential (primary) hypertension; E03.9 Hypothyroidism, unspecified; E86.9 Volume depletion, unspecified; N40.1 Benign prostatic hyperplasia with lower urinary tract symptoms; R33.8 Other retention of urine; E78.5 Hyperlipidemia, unspecified; K44.9 Diaphragmatic hernia without obstruction or gangrene; K20.8 Other esophagitis; K57.30 Diverticulosis of large intestine without perforation or abscess without bleeding; K31.89 Other diseases of stomach and duodenum; K59.00 Constipation, unspecified; Z87.891 Personal history of nicotine dependence; Z80.1 Family history of malignant neoplasm of trachea, bronchus and lung; M19.90 Unspecified osteoarthritis, unspecified site
CPT/HCPCS: 71020; 74020; 80048; 80053; 81001; 82150; 82948; 83036; 83690; 83880; 84443; 85025; 85610; 85730; 93005; 94640; 94761; 96361; 96374; 96375; C9113; J1170; J1610; J1815; J2175; J2270; J2405; J2550; J7030; J7120; 97116-GP; 97530-GP; S0164